=== PATIENT | male | born 1945 | race Caucasian/White ===

== ENCOUNTER 2016-08-05 11:07 | Emergency (ER) | payer OTHER ==
--- NOTE | ~2016-08-05 | CR94 ---
[facility]. [facility] A Service of [facility] & [facility] RADIOLOGY TEXT RESULTS PATIENT: YUN CRANE LOCATION: SED : 41 UNIT #: [id number] AGE: [address]: Juan Jose Gordon MD SEX: M ORDER DR: [id number] [place] [id number] E MR#: [id number] Acc #: [id number] NAME: YUN CRANE : 1945 SEX: M STUDY DATE/TIME: 08/05/2016 12:13 UNIT: SED ROOM: STUDY DESCRIPTION: CR Elbow Min 3 Views Rt Attending Physician: Juan Jose Gordon M.D. Ordering Physician: Juan Jose Gordon M.D. Primary Care Physician: Primary Care Physician No MEDICAL IMAGING REPORT This report is preliminary unless electronic signature is present. EXAM Right elbow three views INDICTIONS Right elbow pain and redness for two days. No comparisons FINDINGS There are degenerative changes of the elbow joint. There is no acute fracture or dislocation. No joint effusion. There is some soft tissue swelling posterior to the elbow. IMPRESSION Soft tissue swelling posterior to the elbow. No acute fracture. Dictated by... Kermit Cao M.D. THIS IS AN ELECTRONICALLY VERIFIED REPORT Kermit Cao M.D. at 08/07/2016 7:49 AM MARIN/jana TD: 08/05/2016 15:11 JOB #: [id number] MEDICAL IMAGING REPORT Page 1 of 1
[~2016-08-05 11:07] MED LIST: ASPIRIN1 GM; ASPIRIN81 M1 PO; ASPIRINEC PO; BACTRIM DS TABL1 TA1 PO; BENZONATATE PO; COUMADIN PO; FLOMAX0.4 M1 PO; FLONASE16 GM; IBUPROFEN; IMDUR-ER30 M1; IMDUR30 MG PO; LIPITOR PO; LISINOPRIL PO; LOPRESSOR PO; LORTAB 7.5-5001 TAB PO; METOPROLOL TAR25 MG PO; MEVACOR PO; MEVACOR10 MG; MEVACOR40 MG PO; NITROGLYCERIN0.4 MG SL; NITROGLYGERIN0.4 MG SL; NITROGYLCERIN SUBLINGUAL; NORCO 5/325 TAB1 TAB PO; PLAVIX PO; PYRIDIUM PO; SENNA PO; TAGAMET; TAGAMET PO; TYLOX 5-500 CA1 EACH PO; TYLOX1 CAP 5/50 PO; ULTRAM PO; VERAMYST10 GM NS; ZESTRIL2.5 MG PO; ZESTRIL5 MG PO; ZITHROMAX PO
== END 2016-08-05 13:01 | disposition home or self-care (01) ==
LOC: SED 11:07
DX: L03.114 Cellulitis of left upper limb (principal); I10 Essential (primary) hypertension; E78.00 Pure hypercholesterolemia, unspecified; K21.9 Gastro-esophageal reflux disease without esophagitis; C43.9 Malignant melanoma of skin, unspecified; Z79.82 Long term (current) use of aspirin; Z79.899 Other long term (current) drug therapy; Z87.891 Personal history of nicotine dependence
CPT/HCPCS: 73080; 99283